=== PATIENT | female | born 1965 | race African-American/Black ===

== ENCOUNTER 2017-11-27 15:59 | Inpatient (IN) | payer MEDICARE, OTHER ==
[~2017-11-27] VITALS: Ht 162.6 cm; Wt 87.5 kg
[2017-11-27] MEDS ORDERED: SODIUM CHLORIDE 0.9% 1,000ML IVBOLUS ONE ×2 (17:00→19:30)
[2017-11-27] MEDS ORDERED: SODIUM CHLORIDE FLUSH 10ML SYR IVF ONE (17:00)
[2017-11-27 17:27] LABS: ALANINE AMINOTRANSFERASE 18 U/L (12-78); ALBUMIN 3.6 g/dL (3.4-5.0); ANION GAP 13 mmol/L (5-15); CALCIUM 7.6 mg/dL (8.5-10.1); CHLORIDE 104 mmol/L (98-107); CREATININE 2.31 mg/dL (0.55-1.02)
[2017-11-27 17:28] LABS: RED BLOOD COUNT 2.25 x10^6/uL (3.82-5.3)
[2017-11-27 17:29] LABS: ALKALINE PHOSPHATASE 74 U/L (45-117); BILIRUBIN,TOTAL 2.2 mg/dL (0.2-1.0); TOTAL PROTEIN 7.6 g/dL (6.4-8.2)
[2017-11-27] MEDS ORDERED: ACETAMINOPHEN 500 MG TABLET PO ONE (17:30)
[2017-11-27] MEDS ORDERED: ONDANSETRON 2MG/ML, 2ML IVPush ONE (17:30)
[2017-11-27] MEDS ORDERED: HYDROmorphone 2 MG/ML, 1ML IVPush PRN (17:30)
[2017-11-27] MEDS ORDERED: VANCOMYCIN PER PHARMACY IV ONE (17:30)
[2017-11-27] MEDS ORDERED: CEFTRIAXONE PMX 1GM/50ML 50 ML IVPB ONE (17:30)
[2017-11-27 18:00] LABS: MEAN CORPUSCULAR HEMOGLOBIN 40.9 pg (27.0-34.8); MEAN CORPUSCULAR HGB CONC 32.3 g/dL (32.4-35.8); MEAN CORPUSCULAR VOLUME 126.7 fL (80-100); PLATELET COUNT 461 x10^3/uL (130-400); RED BLOOD COUNT 2.26 x10^6/uL (3.82-5.3); RED CELL DISTRIBUTION WIDTH 19.1 % (9.6-15.2)
[2017-11-27] MEDS ORDERED: VANCOMYCIN 1,600 MG in SODIUM CHLORIDE 0.9% 250 ML IV ONE ×2 (18:00→22:30)
[2017-11-27 18:01] LABS: MD YES
[2017-11-27 18:08] LABS: LYMPH#(MANUAL) 0.84 x10^3/uL (1-3.4); LYMPHS% (MANUAL) 3 % (22-44); MONOS#(MANUAL) 0.28 x10^3/uL (0.3-2.7); MONOS% (MANUAL) 1 % (2-9); NRBC % (MANUAL) 5 % (0-1); SEGS% (MANUAL) 96 % (42-75)
[2017-11-27 18:09] LABS: ANISOCYTOSIS 1+; OVALOCYTES 1+; POLYCHROMASIA 2+; TARGET CELLS 2+
[2017-11-27] MEDS ORDERED: ONDANSETRON 2MG/ML, 2ML ONE (18:09)
[2017-11-27] MEDS ORDERED: CEFTRIAXONE PMX 1GM/50ML 50 ML ONE (18:09)
[2017-11-27] MEDS ORDERED: HYDROmorphone 2 MG/ML, 1ML ONE (18:09)
[2017-11-27 18:11] LABS: SCHISTOCYTES 1+
[2017-11-27] MEDS ORDERED: ACETAMINOPHEN 500 MG TABLET ONE (18:11)
[2017-11-27 18:12] LABS: SICKLE CELLS 1+
[2017-11-27 18:14] LABS: <PLATELET ESTIMATE> ADEQUATE; LARGE PLATELETS 1+; TOXIC GRAN 2+
[2017-11-27 18:18] LABS: HEMOGRAM NOTE RECHECKED
[2017-11-27 18:29] LABS: PROTHROMBIN TIME 147.7 Seconds (9.6-11.5)
[2017-11-27 18:30] LABS: INTERNATIONAL NORMALIZED RATIO 14.98 (0.93-1.1)
[2017-11-27 18:46] LABS: ABSOLUTE RETICS # 0.096 x10^6/uL (0.5-2.5); RETICULOCYTE COUNT % 4.3 % (0.5-1.5)
[2017-11-27] MEDS ORDERED: FENTANYL PF 100 MCG/2ML ONE (18:55)
[2017-11-27] MEDS ORDERED: MIDAZOLAM 1 MG/ML, 2ML ONE (18:56)
[2017-11-27] MEDS ORDERED: BUPIVACAINE/PF-EPI 0.5% 1:200K ONE (19:15)
[2017-11-27] MEDS ORDERED: PROPOFOL 10 MG/ML, 20ML ONE (19:25)
[2017-11-27] MEDS ORDERED: CEFOTETAN PMX 2GM/50ML 50 ML IVPB ONE (19:25)
[2017-11-27] MEDS ORDERED: methylPREDNISolone SOD SUCC 40 MG/ML ONE (19:37)
[2017-11-27] MEDS ORDERED: methylPREDNISolone SOD SUCC 125 MG/2 ML ONE (19:37)
[2017-11-27] MEDS ORDERED: LIDOCAINE/PF 1%, 30ML ONE (19:44)
[2017-11-27] MEDS ORDERED: MIDAZOLAM 1 MG/ML, 2ML IV PRN (20:30)
[2017-11-27] MEDS ORDERED: LABETALOL 5MG/ML, 20ML IV PRN (20:30)
[2017-11-27] MEDS ORDERED: HYDROcodone/APAP 7.5-325MG/15ML UDC PO PRN (20:30)
[2017-11-27] MEDS ORDERED: ONDANSETRON 2MG/ML, 2ML IV PRN (20:30)
[2017-11-27] MEDS ORDERED: OXYcodone 5 MG/5 ML ORAL.SOL UDC PO PRN (20:30)
[2017-11-27] MEDS ORDERED: EPHEDRINE 50 MG/ML, 1ML IVPush PRN (20:30)
[2017-11-27] MEDS ORDERED: FENTANYL PF 100 MCG/2ML IV PRN (20:30)
[2017-11-27] MEDS ORDERED: PROMETHAZINE 25 MG/ML, 1ML IV PRN (20:30)
[2017-11-27] MEDS ORDERED: HYDROmorphone 1 MG/ML, 1ML IV PRN (20:30)
[2017-11-27] MEDS ORDERED: hydrALAzine 20 MG/ML, 1ML IV PRN (20:30)
[2017-11-27] MEDS ORDERED: ALBUTEROL SULFATE 2.5 MG/3 ML NPPB PRN (20:30)
[2017-11-27] MEDS ORDERED: ACETAMINOPHEN 325 MG TABLET PO PRN (20:30)
[2017-11-27] MEDS ORDERED: LACTATED RINGERS 1,000 ML IVBOLUS ONE (21:00)
[2017-11-27] MEDS ORDERED: VANCOMYCIN PER PHARMACY MC PRN (21:00)
[2017-11-27] MEDS ORDERED: ACETAMINOPHEN 325 MG TABLET ONE (21:23)
[2017-11-27] MEDS ORDERED: OXYcodone 5 MG/5 ML ORAL.SOL UDC ONE (21:23)
[2017-11-27 21:59] LABS: RED BLOOD COUNT 1.62 x10^6/uL (3.82-5.3); RETICULOCYTE COUNT % 4.3 % (0.5-1.5)
[2017-11-27 22:01] LABS: ABSOLUTE RETICS # 0.07 x10^6/uL (0.5-2.5)
[2017-11-27] MEDS ORDERED: EPHEDRINE 50 MG/ML, 1ML ONE (22:04)
[2017-11-27] MEDS: MEROPENEM 1 GM in SODIUM CHLORIDE 0.9% 100 ML IV SCH (22:05)
[2017-11-27] MEDS ORDERED: SODIUM CHLORIDE 0.9% 1,000 ML IV ONE (22:30)
[2017-11-27 22:43] VITALS: BP 106/64
[2017-11-27 23:30] LABS: PROTHROMBIN TIME 167.2 Seconds (9.6-11.5)
[2017-11-27] MEDS ORDERED: PHYTONADIONE 10 MG in SODIUM CHLORIDE 0.9% 50 ML IV STA (23:39)
[2017-11-28 01:44] VITALS: BP 97/65
[2017-11-28 01:58] LABS: CULTURE INDICATED? YES; MICROSCOPIC INDICATED
[2017-11-28 02:35] LABS: AMPHETAMINE SCREEN, URINE Negative (Negative); BARBITURATE SCREEN, URINE Negative (Negative); BENZODIAZEPINE SCREEN, URINE Positive (Negative); CANNABINOID SCREEN, URINE Negative (Negative); COCAINE SCREEN, URINE Negative (Negative); METHADONE SCREEN, URINE Negative (Negative); OPIATE SCREEN, URINE Positive (Negative)
[2017-11-28 05:08] LABS: ANION GAP 10 mmol/L (5-15); CALCIUM 6.8 mg/dL (8.5-10.1); CHLORIDE 108 mmol/L (98-107)
[2017-11-28 05:10] LABS: MEAN CORPUSCULAR HEMOGLOBIN 41.1 pg (27.0-34.8); MEAN CORPUSCULAR HGB CONC 31.8 g/dL (32.4-35.8); MEAN CORPUSCULAR VOLUME 129.3 fL (80-100); MEAN PLATELET VOLUME 9.3 fL (7.4-10.4); PLATELET COUNT 447 x10^3/uL (130-400); RED BLOOD COUNT 1.78 x10^6/uL (3.82-5.3); RED CELL DISTRIBUTION WIDTH 18.6 % (9.6-15.2)
[2017-11-28 05:19] LABS: CREATININE 1.97 mg/dL (0.55-1.02)
[2017-11-28 05:38] LABS: MD YES
[2017-11-28 05:39] LABS: MONOS#(MANUAL) 0.24 x10^3/uL (0.3-2.7); MONOS% (MANUAL) 1 % (2-9); NRBC % (MANUAL) 6 % (0-1)
[2017-11-28 05:40] LABS: LYMPH#(MANUAL) 0.24 x10^3/uL (1-3.4); LYMPHS% (MANUAL) 1 % (22-44); SEG#(MANUAL) 23.91 x10^3/uL (1.8-6.8); SEGS% (MANUAL) 98 % (42-75)
[2017-11-28 05:41] LABS: ANISOCYTOSIS 1+
[2017-11-28 05:42] LABS: POLYCHROMASIA 1+; SCHISTOCYTES 1+; TARGET CELLS 2+
[2017-11-28 05:44] LABS: HYPERSEG PMNs 1+; OVALOCYTES 1+
[2017-11-28 05:46] LABS: SICKLE CELLS 1+
[2017-11-28 05:47] LABS: <PLATELET ESTIMATE> INCREASED; <PLT MORPHOLOGY> NORMAL PLT MORPH
[2017-11-28 06:05] LABS: CLOSTRIDIUM DIFFICILE TOXIN NEGATIVE (Negative)
[2017-11-28 06:07] LABS: CLOSTRIDIUM DIFFICILE ANTIGEN POSITIVE
[2017-11-28 08:04] LABS: INTERNATIONAL NORMALIZED RATIO 2.76 (0.93-1.1); PROTHROMBIN TIME 28.1 Seconds (9.6-11.5)
[2017-11-28 08:05] VITALS: BP 96/63
[2017-11-28] MEDS: MEROPENEM 1 GM in SODIUM CHLORIDE 0.9% 100 ML IV SCH ×2 (10:08→21:15)
[2017-11-28 13:40] LABS: FOLATE LEVEL > 20.0 ng/mL (3.1-17.5)
[2017-11-28] MEDS: SODIUM CHLORIDE 0.9% 1,000 ML IV SCH (13:45)
[2017-11-28 13:52] VITALS: BP 108/69
[2017-11-28 14:10] VITALS: BP 95/66
[2017-11-28 17:12] VITALS: BP 97/64
[2017-11-28 20:08] VITALS: BP 97/61
[2017-11-28] MEDS: TACROLIMUS 1 MG CAPSULE PO SCH (21:15)
[2017-11-28] MEDS ORDERED: VANCOMYCIN 1,600 MG in SODIUM CHLORIDE 0.9% 250 ML IV ONE (22:00)
[2017-11-29 02:16] VITALS: BP 103/66
[2017-11-29 05:05] LABS: MEAN CORPUSCULAR HEMOGLOBIN 41.6 pg (27.0-34.8); MEAN CORPUSCULAR HGB CONC 32.1 g/dL (32.4-35.8); MEAN CORPUSCULAR VOLUME 129.4 fL (80-100); MEAN PLATELET VOLUME 9.1 fL (7.4-10.4); PLATELET COUNT 431 x10^3/uL (130-400); RED BLOOD COUNT 1.62 x10^6/uL (3.82-5.3); RED CELL DISTRIBUTION WIDTH 18.4 % (9.6-15.2)
[2017-11-29 05:11] LABS: INTERNATIONAL NORMALIZED RATIO 1.23 (0.93-1.1); PROTHROMBIN TIME 12.7 Seconds (9.6-11.5)
[2017-11-29 05:19] LABS: ANION GAP 10 mmol/L (5-15); CALCIUM 7.2 mg/dL (8.5-10.1); CHLORIDE 111 mmol/L (98-107)
[2017-11-29 05:20] LABS: CALCIUM 7.4 mg/dL (8.5-10.1)
[2017-11-29 05:21] LABS: CREATININE 1.24 mg/dL (0.55-1.02)
[2017-11-29 05:41] LABS: MD YES
[2017-11-29] MEDS: SODIUM CHLORIDE 0.9% 1,000 ML IV SCH (05:41)
[2017-11-29 05:47] LABS: ANISOCYTOSIS 1+; BAND#(MANUAL) 0.24 x10^3/uL; BANDS%(MANUAL) 1 % (0-7); LYMPH#(MANUAL) 0.72 x10^3/uL (1-3.4); LYMPHS% (MANUAL) 3 % (22-44); MONOS#(MANUAL) 0.24 x10^3/uL (0.3-2.7); MONOS% (MANUAL) 1 % (2-9); NRBC % (MANUAL) 13 % (0-1); OVALOCYTES 1+; POLYCHROMASIA 1+; SEGS% (MANUAL) 95 % (42-75)
[2017-11-29 05:48] LABS: <PLATELET ESTIMATE> INCREASED; <PLT MORPHOLOGY> NORMAL PLT MORPH; SCHISTOCYTES 1+; SICKLE CELLS 1+; TARGET CELLS 2+
[2017-11-29] MEDS: ACETAMINOPHEN 325 MG TABLET PO PRN ×3 (06:44→21:36)
[2017-11-29 07:22] VITALS: BP 110/69
[2017-11-29] MEDS ORDERED: MAGNESIUM SULFATE PMX 4GM/100M 100 ML IVPB ONE (07:30)
[2017-11-29] MEDS ORDERED: VANCOMYCIN PER PHARMACY MC PRN (10:00)
[2017-11-29] MEDS ORDERED: PHARMACOKINETIC CONSULTATION MC ONE (10:00)
[2017-11-29] MEDS ORDERED: PHARMACOKINETIC MONITORING MC PRN (10:00)
[2017-11-29] MEDS: MEROPENEM 1 GM in SODIUM CHLORIDE 0.9% 100 ML IV SCH ×2 (10:16→21:36)
[2017-11-29] MEDS: NEUTRA PHOS K 250 MG TABLET PO SCH ×3 (12:18→21:35)
[2017-11-29 13:11] VITALS: BP 108/72
[2017-11-29] MEDS ORDERED: WARFARIN 7.5 MG TABLET PO-COUM ONE (18:00)
[2017-11-29] MEDS: TACROLIMUS 1 MG CAPSULE PO SCH ×2 (18:04→22:59)
[2017-11-29 19:53] VITALS: BP 128/81
[2017-11-29] MEDS ORDERED: VANCOMYCIN 1,600 MG in SODIUM CHLORIDE 0.9% 250 ML IV SCH (22:00)
[2017-11-29] MEDS ORDERED: MORPHINE SULFATE 4 MG/ML, 1ML IV PRN (22:30)
[2017-11-29] MEDS: ZOLPIDEM 5MG TABLET PO PRN (22:59)
[2017-11-30 01:04] VITALS: BP 117/75
[2017-11-30] MEDS: ACETAMINOPHEN 325 MG TABLET PO PRN (05:25)
[2017-11-30 06:01] LABS: INTERNATIONAL NORMALIZED RATIO 1.05 (0.93-1.1); PROTHROMBIN TIME 10.9 Seconds (9.6-11.5)
[2017-11-30 06:05] LABS: ANION GAP 10 mmol/L (5-15); CALCIUM 8.1 mg/dL (8.5-10.1); CHLORIDE 113 mmol/L (98-107)
[2017-11-30 06:07] LABS: CREATININE 1.07 mg/dL (0.55-1.02)
[2017-11-30 07:18] LABS: MEAN CORPUSCULAR HEMOGLOBIN 41.8 pg (27.0-34.8); MEAN CORPUSCULAR HGB CONC 32.5 g/dL (32.4-35.8); MEAN CORPUSCULAR VOLUME 128.7 fL (80-100); MEAN PLATELET VOLUME 8.7 fL (7.4-10.4); PLATELET COUNT 265 x10^3/uL (130-400); RED BLOOD COUNT 1.75 x10^6/uL (3.82-5.3); RED CELL DISTRIBUTION WIDTH 19.4 % (9.6-15.2)
[2017-11-30 07:19] LABS: MD YES
[2017-11-30 07:23] LABS: BAND#(MANUAL) 0.57 x10^3/uL; BANDS%(MANUAL) 4 % (0-7); LYMPH#(MANUAL) 1.43 x10^3/uL (1-3.4); LYMPHS% (MANUAL) 10 % (22-44); NRBC % (MANUAL) 16 % (0-1); SEGS% (MANUAL) 86 % (42-75)
[2017-11-30 07:31] VITALS: BP 110/79
[2017-11-30 08:07] LABS: ANISOCYTOSIS 2+; HYPOCHROMIA 1+; OVALOCYTES 1+; POLYCHROMASIA 1+; SPHEROCYTES 1+
[2017-11-30 08:08] LABS: SICKLE CELLS 1+; TARGET CELLS 2+
[2017-11-30 08:09] LABS: <PLATELET ESTIMATE> ADEQUATE; <PLT MORPHOLOGY> NORMAL PLT MORPH; HYPERSEG PMNs 1+
[2017-11-30] MEDS: TACROLIMUS 1 MG CAPSULE PO SCH ×2 (09:33→21:23)
[2017-11-30] MEDS: MEROPENEM 1 GM in SODIUM CHLORIDE 0.9% 100 ML IV SCH (10:30)
[2017-11-30] MEDS: ENOXAPARIN 40 MG/0.4 ML SQ SCH (12:12)
[2017-11-30 12:54] VITALS: BP 114/83
[2017-11-30] MEDS: metroNIDAZOLE 500 MG TABLET PO SCH (17:28)
[2017-11-30] MEDS: CEFTRIAXONE 1,000 MG in SODIUM CHLORIDE 0.9% 50 ML IV SCH (17:28)
[2017-11-30] MEDS ORDERED: WARFARIN 7.5 MG TABLET PO-COUM ONE (18:00)
[2017-11-30 20:00] VITALS: BP 116/82
[2017-11-30] MEDS: ZOLPIDEM 5MG TABLET PO PRN (21:34)
[2017-12-01] MEDS: metroNIDAZOLE 500 MG TABLET PO SCH ×4 (00:39→23:41)
[2017-12-01 02:00] VITALS: BP 112/80
[2017-12-01 02:07] VITALS: BP 120/80
[2017-12-01 06:40] LABS: ANION GAP 8 mmol/L (5-15); CALCIUM 8.8 mg/dL (8.5-10.1); CHLORIDE 110 mmol/L (98-107)
[2017-12-01 06:43] LABS: CREATININE 0.97 mg/dL (0.55-1.02); VANCOMYCIN,RANDOM 13.2 mcg/mL
[2017-12-01 07:19] LABS: MD YES; MEAN CORPUSCULAR HGB CONC 32.6 g/dL (32.4-35.8); MEAN CORPUSCULAR VOLUME 128.9 fL (80-100); MEAN PLATELET VOLUME 7.8 fL (7.4-10.4); PLATELET COUNT 533 x10^3/uL (130-400); RED BLOOD COUNT 1.67 x10^6/uL (3.82-5.3); RED CELL DISTRIBUTION WIDTH 19.6 % (9.6-15.2)
[2017-12-01 08:27] VITALS: BP 133/83
[2017-12-01] MEDS ORDERED: POTASSIUM CHLORIDE 20 MEQ TAB.ER.PRT PO ONE (08:30)
[2017-12-01] MEDS: POTASSIUM CHLORIDE 20 MEQ TAB.ER.PRT PO SCH ×2 (08:52→13:03)
[2017-12-01] MEDS: TACROLIMUS 1 MG CAPSULE PO SCH ×2 (08:52→21:00)
[2017-12-01] MEDS ORDERED: MAGNESIUM SULFATE PMX 2GM/50ML 50 ML IV ONE (09:00)
[2017-12-01 09:34] LABS: LYMPH#(MANUAL) 2.32 x10^3/uL (1-3.4); LYMPHS% (MANUAL) 20 % (22-44); MONOS#(MANUAL) 0.23 x10^3/uL (0.3-2.7); MONOS% (MANUAL) 2 % (2-9); NRBC % (MANUAL) 6 % (0-1); SEG#(MANUAL) 9.05 x10^3/uL (1.8-6.8); SEGS% (MANUAL) 78 % (42-75)
[2017-12-01 09:35] LABS: ANISOCYTOSIS 2+
[2017-12-01 09:36] LABS: HYPOCHROMIA 1+; POLYCHROMASIA 1+; SPHEROCYTES 1+
[2017-12-01 09:38] LABS: OVALOCYTES 1+
[2017-12-01 09:42] LABS: SCHISTOCYTES 1+
[2017-12-01 11:02] LABS: INTERNATIONAL NORMALIZED RATIO 1.19 (0.93-1.1); PROTHROMBIN TIME 12.3 Seconds (9.6-11.5)
[2017-12-01] MEDS: ENOXAPARIN 40 MG/0.4 ML SQ SCH (11:36)
[2017-12-01] MEDS: ACETAMINOPHEN 325 MG TABLET PO PRN (11:36)
[2017-12-01 12:16] VITALS: BP 125/77
[2017-12-01 13:30] LABS: <PLATELET ESTIMATE> INCREASED; <PLT MORPHOLOGY> NORMAL PLT MORPH; SICKLE CELLS 1+; TARGET CELLS 2+
[2017-12-01] MEDS: CEFTRIAXONE 1,000 MG in SODIUM CHLORIDE 0.9% 50 ML IV SCH (16:26)
[2017-12-01] MEDS ORDERED: WARFARIN 10 MG TABLET PO-COUM ONE (18:00)
[2017-12-01 19:17] VITALS: BP 125/77
[2017-12-01] MEDS ORDERED: VANCOMYCIN PMX 1GM/200ML 200 ML IV SCH (21:00)
[2017-12-01] MEDS: ZOLPIDEM 5MG TABLET PO PRN (23:41)
[2017-12-02 03:28] VITALS: BP 136/65
[2017-12-02] MEDS: TACROLIMUS 1 MG CAPSULE PO SCH ×2 (08:13→20:34)
[2017-12-02] MEDS: CHOLECALCIFEROL 1,000 UNIT TABLET PO SCH (08:13)
[2017-12-02] MEDS: metroNIDAZOLE 500 MG TABLET PO SCH ×3 (08:13→23:34)
[2017-12-02 08:15] VITALS: BP 148/90
[2017-12-02] MEDS: ACETAMINOPHEN 325 MG TABLET PO PRN ×2 (08:30→20:34)
[2017-12-02 09:05] LABS: MEAN CORPUSCULAR HEMOGLOBIN 40.8 pg (27.0-34.8); MEAN CORPUSCULAR HGB CONC 31.6 g/dL (32.4-35.8); MEAN PLATELET VOLUME 7.8 fL (7.4-10.4); PLATELET COUNT 573 x10^3/uL (130-400); RED BLOOD COUNT 1.83 x10^6/uL (3.82-5.3); RED CELL DISTRIBUTION WIDTH 20.2 % (9.6-15.2)
[2017-12-02 09:06] LABS: ANION GAP 7 mmol/L (5-15); CALCIUM 8.9 mg/dL (8.5-10.1); CHLORIDE 108 mmol/L (98-107); CREATININE 0.97 mg/dL (0.55-1.02)
[2017-12-02 09:11] LABS: INTERNATIONAL NORMALIZED RATIO 1.31 (0.93-1.1); PROTHROMBIN TIME 13.6 Seconds (9.6-11.5)
[2017-12-02 09:13] LABS: MD YES
[2017-12-02 09:22] LABS: BAND#(MANUAL) 0.13 x10^3/uL; BANDS%(MANUAL) 1 % (0-7); LYMPH#(MANUAL) 2.05 x10^3/uL (1-3.4); LYMPHS% (MANUAL) 16 % (22-44); MONOS#(MANUAL) 0.64 x10^3/uL (0.3-2.7); MONOS% (MANUAL) 5 % (2-9); NRBC % (MANUAL) 37 % (0-1); SEG#(MANUAL) 9.98 x10^3/uL (1.8-6.8); SEGS% (MANUAL) 78 % (42-75)
[2017-12-02 09:23] LABS: ANISOCYTOSIS 2+
[2017-12-02 09:24] LABS: HYPOCHROMIA 1+; SPHEROCYTES 1+; TARGET CELLS 2+
[2017-12-02 09:25] LABS: POLYCHROMASIA 1+
[2017-12-02 09:26] LABS: SCHISTOCYTES 1+; SICKLE CELLS 1+
[2017-12-02 09:27] LABS: OVALOCYTES 1+
[2017-12-02 09:28] LABS: <PLATELET ESTIMATE> INCREASED; <PLT MORPHOLOGY> NORMAL PLT MORPH
[2017-12-02] MEDS ORDERED: MAGNESIUM SULFATE PMX 2GM/50ML 50 ML IV ONE (10:30)
[2017-12-02] MEDS ORDERED: PHARMACY INSTRUCTION MC PRN (11:30)
[2017-12-02] MEDS: OXYcodone IR 5MG TABLET PO PRN ×2 (13:00→23:34)
[2017-12-02] MEDS: ENOXAPARIN 40 MG/0.4 ML SQ SCH (13:00)
[2017-12-02 15:44] VITALS: BP 130/84
[2017-12-02] MEDS: CEFTRIAXONE 1,000 MG in SODIUM CHLORIDE 0.9% 50 ML IV SCH (17:11)
[2017-12-02] MEDS ORDERED: WARFARIN 10 MG TABLET PO-COUM ONE (18:00)
[2017-12-02 19:07] VITALS: BP 127/78
[2017-12-02] MEDS: ONDANSETRON 2MG/ML, 2ML IVPush PRN (22:44)
[2017-12-03 01:00] VITALS: BP 132/65
[2017-12-03] MEDS: ONDANSETRON 2MG/ML, 2ML IVPush PRN ×2 (04:44→22:23)
[2017-12-03 07:09] LABS: ANION GAP 8 mmol/L (5-15); CALCIUM 8.5 mg/dL (8.5-10.1); CHLORIDE 108 mmol/L (98-107); CREATININE 0.94 mg/dL (0.55-1.02)
[2017-12-03 07:30] LABS: MEAN CORPUSCULAR HEMOGLOBIN 41.6 pg (27.0-34.8); MEAN CORPUSCULAR HGB CONC 32.5 g/dL (32.4-35.8); MEAN CORPUSCULAR VOLUME 128.2 fL (80-100); MEAN PLATELET VOLUME 8.1 fL (7.4-10.4); PLATELET COUNT 541 x10^3/uL (130-400); RED BLOOD COUNT 1.76 x10^6/uL (3.82-5.3); RED CELL DISTRIBUTION WIDTH 20.6 % (9.6-15.2)
[2017-12-03 07:35] VITALS: BP 119/79
[2017-12-03 07:41] LABS: MD YES
[2017-12-03 07:45] LABS: ANISOCYTOSIS 2+; BAND#(MANUAL) 0.43 x10^3/uL; BANDS%(MANUAL) 3 % (0-7); EOS#(MANUAL) 0.29 x10^3/uL (0.0-0.4); EOS% (MANUAL) 2 % (1-7); HYPOCHROMIA 1+; INTERNATIONAL NORMALIZED RATIO 1.68 (0.93-1.1); LYMPH#(MANUAL) 1.72 x10^3/uL (1-3.4); LYMPHS% (MANUAL) 12 % (22-44); METAMYELOCYTES# (MANUAL) 0.29 x10^3/uL (0-0); METAMYELOCYTES% (MANUAL) 2 % (0-1); MONOS% (MANUAL) 7 % (2-9); NRBC % (MANUAL) 31 % (0-1); OVALOCYTES 1+; POLYCHROMASIA 1+; PROTHROMBIN TIME 17.3 Seconds (9.6-11.5); SCHISTOCYTES 1+; SEGS% (MANUAL) 74 % (42-75); SPHEROCYTES 1+; TARGET CELLS 2+
[2017-12-03 07:46] LABS: SICKLE CELLS 1+
[2017-12-03 07:49] LABS: <PLATELET ESTIMATE> INCREASED; LARGE PLATELETS 1+
[2017-12-03] MEDS: CHOLECALCIFEROL 1,000 UNIT TABLET PO SCH (09:26)
[2017-12-03] MEDS: metroNIDAZOLE 500 MG TABLET PO SCH ×3 (09:26→23:01)
[2017-12-03] MEDS ORDERED: TACROLIMUS 1 MG CAPSULE PO ONE ×2 (10:30→22:00)
[2017-12-03] MEDS: CEFDINIR 300 MG CAPSULE PO SCH (12:59)
[2017-12-03 14:24] VITALS: BP 117/80
[2017-12-03] MEDS: ACETAMINOPHEN 325 MG TABLET PO PRN ×2 (15:47→20:56)
[2017-12-03 16:19] VITALS: BP 139/71
[2017-12-03] MEDS: OXYcodone IR 5MG TABLET PO PRN (16:51)
[2017-12-03] MEDS ORDERED: WARFARIN 10 MG TABLET PO-COUM ONE (18:00)
[2017-12-03 19:32] VITALS: BP 130/79
[2017-12-03] MEDS: ZOLPIDEM 5MG TABLET PO PRN (23:01)
[2017-12-04 00:23] VITALS: BP 142/88
[2017-12-04] MEDS: HYDROmorphone 2 MG/ML, 1ML IVPush PRN ×3 (02:59→13:06)
[2017-12-04 05:40] LABS: ANION GAP 6 mmol/L (5-15); CALCIUM 8.9 mg/dL (8.5-10.1); CHLORIDE 105 mmol/L (98-107); CREATININE 0.96 mg/dL (0.55-1.02)
[2017-12-04 05:48] LABS: INTERNATIONAL NORMALIZED RATIO 2.19 (0.93-1.1); PROTHROMBIN TIME 22.4 Seconds (9.6-11.5)
[2017-12-04 06:16] LABS: MD YES; MEAN CORPUSCULAR HEMOGLOBIN 41.9 pg (27.0-34.8); MEAN CORPUSCULAR HGB CONC 32.6 g/dL (32.4-35.8); MEAN CORPUSCULAR VOLUME 128.7 fL (80-100); MEAN PLATELET VOLUME 8.4 fL (7.4-10.4); PLATELET COUNT 585 x10^3/uL (130-400); RED BLOOD COUNT 1.93 x10^6/uL (3.82-5.3); RED CELL DISTRIBUTION WIDTH 20.8 % (9.6-15.2)
[2017-12-04 06:22] LABS: EOS#(MANUAL) 0.15 x10^3/uL (0.0-0.4); EOS% (MANUAL) 1 % (1-7); LYMPHS% (MANUAL) 18 % (22-44); MONOS% (MANUAL) 8 % (2-9); NRBC % (MANUAL) 119 % (0-1); SEG#(MANUAL) 10.95 x10^3/uL (1.8-6.8); SEGS% (MANUAL) 73 % (42-75)
[2017-12-04 06:23] LABS: ANISOCYTOSIS 2+; HYPOCHROMIA 1+; OVALOCYTES 1+; POLYCHROMASIA 1+; SCHISTOCYTES 1+; SPHEROCYTES 1+; TARGET CELLS 2+
[2017-12-04 06:24] LABS: <PLATELET ESTIMATE> INCREASED; LARGE PLATELETS 1+; SICKLE CELLS 1+
[2017-12-04 07:06] VITALS: BP 120/79
[2017-12-04] MEDS: ONDANSETRON 2MG/ML, 2ML IVPush PRN ×3 (07:24→19:48)
[2017-12-04] MEDS ORDERED: MAGNESIUM SULFATE PMX 4GM/100M 100 ML IVPB ONE (08:30)
[2017-12-04] MEDS: TACROLIMUS 1 MG CAPSULE PO SCH ×2 (09:00→21:00)
[2017-12-04] MEDS: CHOLECALCIFEROL 1,000 UNIT TABLET PO SCH (09:54)
[2017-12-04] MEDS: metroNIDAZOLE 500 MG TABLET PO SCH (09:54)
[2017-12-04] MEDS: CEFDINIR 300 MG CAPSULE PO SCH (09:54)
[2017-12-04] MEDS ORDERED: TACROLIMUS 1 MG CAPSULE PO ONE (10:00)
[2017-12-04 12:31] VITALS: BP 149/79
[2017-12-04] MEDS ORDERED: METOCLOPRAMIDE 5 MG/ML, 2ML IVPush ONE (16:30)
[2017-12-04] MEDS: OXYcodone IR 5MG TABLET PO PRN (16:35)
[2017-12-04] MEDS: AMOXICILLIN/CLAV 500-125MG TABLET PO SCH (17:32)
[2017-12-04] MEDS ORDERED: WARFARIN 5 MG TABLET PO-COUM ONE (18:00)
[2017-12-04 20:31] VITALS: BP 135/84
[2017-12-04] MEDS ORDERED: TACROLIMUS 1 MG CAPSULE PO SCH (21:00)
[2017-12-05] MEDS: ZOLPIDEM 5MG TABLET PO PRN (00:17)
[2017-12-05] MEDS: AMOXICILLIN/CLAV 500-125MG TABLET PO SCH ×2 (00:17→09:03)
[2017-12-05 02:11] VITALS: BP 116/75
[2017-12-05] MEDS: ONDANSETRON 2MG/ML, 2ML IVPush PRN (02:17)
[2017-12-05] MEDS: HYDROmorphone 2 MG/ML, 1ML IVPush PRN (02:17)
[2017-12-05 05:24] LABS: ANION GAP 8 mmol/L (5-15); CALCIUM 9.1 mg/dL (8.5-10.1); CHLORIDE 101 mmol/L (98-107); CREATININE 1.07 mg/dL (0.55-1.02)
[2017-12-05 05:31] LABS: INTERNATIONAL NORMALIZED RATIO 2.25 (0.93-1.1)
[2017-12-05 06:03] LABS: MD YES; MEAN CORPUSCULAR HEMOGLOBIN 41.1 pg (27.0-34.8); MEAN CORPUSCULAR HGB CONC 31.8 g/dL (32.4-35.8); MEAN CORPUSCULAR VOLUME 129.4 fL (80-100); MEAN PLATELET VOLUME 8.5 fL (7.4-10.4); PLATELET COUNT 639 x10^3/uL (130-400); RED BLOOD COUNT 2.11 x10^6/uL (3.82-5.3); RED CELL DISTRIBUTION WIDTH 20.7 % (9.6-15.2)
[2017-12-05 06:07] LABS: <PLATELET ESTIMATE> INCREASED; ANISOCYTOSIS 2+; BAND#(MANUAL) 0.13 x10^3/uL; BANDS%(MANUAL) 1 % (0-7); BASOS#(MANUAL) 0.13 x10^3/uL (0-0.1); BASOS% (MANUAL) 1 % (0-1); HYPOCHROMIA 1+; LARGE PLATELETS 1+; LYMPH#(MANUAL) 3.12 x10^3/uL (1-3.4); LYMPHS% (MANUAL) 24 % (22-44); MONOS#(MANUAL) 1.43 x10^3/uL (0.3-2.7); MONOS% (MANUAL) 11 % (2-9); NRBC % (MANUAL) 174 % (0-1); OVALOCYTES 1+; POLYCHROMASIA 1+; SCHISTOCYTES 1+; SEG#(MANUAL) 8.19 x10^3/uL (1.8-6.8); SEGS% (MANUAL) 63 % (42-75); SPHEROCYTES 1+
[2017-12-05 06:10] LABS: TARGET CELLS 1+
[2017-12-05 07:20] VITALS: BP 139/83
[2017-12-05] MEDS ORDERED: TACROLIMUS 1 MG CAPSULE PO SCH (09:00)
[2017-12-05] MEDS: CHOLECALCIFEROL 1,000 UNIT TABLET PO SCH (09:03)
[2017-12-05] MEDS ORDERED: metroNIDAZOLE 500 MG TABLET PO SCH (12:00)
[2017-12-05 12:37] VITALS: BP 113/75
[2017-12-05] MEDS ORDERED: CHOL10003 PO (13:13)
[2017-12-05] MEDS ORDERED: AMOX1TAB12 PO (13:13)
[2017-12-05] MEDS ORDERED: MYCO500T3 PO (13:19)
[2017-12-05] MEDS ORDERED: PRED5TAB PO (13:19)
[2017-12-05] MEDS ORDERED: METR500T PO (13:19)
[2017-12-05] MEDS ORDERED: TACR1CAP4 PO ×2 (13:19)
[2017-12-05] MEDS ORDERED: WARF2.5T PO-COUM (13:19)
[2017-12-05] MEDS ORDERED: AMOXICILLIN/CLAV 875-125MG TABLET PO SCH (16:00)
[2017-12-05] MEDS ORDERED: WARFARIN 2.5 MG TABLET PO-COUM ONE (18:00)
== END 2017-12-05 15:50 | disposition home or self-care (01) | DRG 871 ==
LOC: ED 18:10 → EDIP 19:22 → 5SO 22:45 → 4EST 11-28 16:02
PROVIDERS: ADMIT Internal Medicine; ATTEND Internal Medicine
PROC: 0H98X0Z Drainage of Buttock Skin with Drainage Device, External Approach (ICD-10-PCS; principal; 2017-11-27 19:30)
DX: A41.9 Sepsis, unspecified organism (principal); D57.00 Hb-SS disease with crisis, unspecified; J18.9 Pneumonia, unspecified organism; L02.31 Cutaneous abscess of buttock; K61.1 Rectal abscess; Z94.0 Kidney transplant status; E87.1 Hypo-osmolality and hyponatremia; D68.59 Other primary thrombophilia; N17.9 Acute kidney failure, unspecified; R65.20 Severe sepsis without septic shock; D53.9 Nutritional anemia, unspecified; E78.5 Hyperlipidemia, unspecified; E83.39 Other disorders of phosphorus metabolism; E83.42 Hypomagnesemia; E83.51 Hypocalcemia; E86.1 Hypovolemia; E87.6 Hypokalemia; E86.0 Dehydration; B96.89 Other specified bacterial agents as the cause of diseases classified elsewhere; G93.89 Other specified disorders of brain; J98.4 Other disorders of lung; N18.2 Chronic kidney disease, stage 2 (mild); T63.301A Toxic effect of unspecified spider venom, accidental (unintentional), initial encounter; Z78.9 Other specified health status; Z79.01 Long term (current) use of anticoagulants; Z79.899 Other long term (current) drug therapy; Z83.2 Family history of diseases of the blood and blood-forming organs and certain disorders involving the immune mechanism; Z86.711 Personal history of pulmonary embolism; Z86.73 Personal history of transient ischemic attack (TIA), and cerebral infarction without residual deficits; Z87.891 Personal history of nicotine dependence; Z90.49 Acquired absence of other specified parts of digestive tract; Z88.8 Allergy status to other drugs, medicaments and biological substances
CPT/HCPCS: 36415; 70450; 70551; 71046; 76776; 80048; 80053; 80197; 80202; 80307; 81001; 82306; 82310; 82570; 82607; 82746; 83605; 83735; 83970; 84100; 84300; 84443; 85014; 85018; 85025; 85045; 85610; 87015; 87040; 87046; 87070; 87075; 87086; 87102; 87116; 87186; 87205; 87206; 87324; 87427; 87493; 89055; 93005; 96361; 96374; 96375; J0696; J1170; J1650; J2185; J2250; J2405; J2704; J3010; J3370; J3430; J3490; J7507; J2765; J2920; J2930; J3475; J7030; J7050; J7120; J7512; J7517; S0074